=== PATIENT | female | born 1945 | race Caucasian/White ===

== ENCOUNTER → 2017-04-10 | Outpatient (CLI) | payer MEDICARE, MEDICAID ==
[~2017-04-10] MED LIST: ASPI-1035; CARV25TA47; INSULIN; LIP40; LISI10TA; METF500T4; REGADENOSON 0.4 MG/5 ML IV ONE; VALA500T
== END | disposition home or self-care (01) ==
LOC: CARD 07:45
DX: Z01.818 Encounter for other preprocedural examination (principal); I25.10 Atherosclerotic heart disease of native coronary artery without angina pectoris; R07.9 Chest pain, unspecified
CPT/HCPCS: 78452; 93017; A9500; J2785